=== PATIENT | male | born 1960 | race Caucasian/White ===

== ENCOUNTER 2022-10-15 09:10 | Outpatient (CLI) | payer OTHER | END 2022-10-15 09:11 | disposition home or self-care (01) | LOC: BICRAD 09:10 | PROVIDERS: ATTEND Chiropractor | DX: M50.90 Cervical disc disorder, unspecified, unspecified cervical region (principal) | CPT/HCPCS: 72040 ==

== ENCOUNTER 2022-11-26 12:03 | Outpatient (CLI) | payer OTHER | END 2022-11-26 12:04 | disposition home or self-care (01) | LOC: ULT 12:03 | PROVIDERS: ATTEND Chiropractor | DX: I25.10 Atherosclerotic heart disease of native coronary artery without angina pectoris (principal); I07.1 Rheumatic tricuspid insufficiency; I37.1 Nonrheumatic pulmonary valve insufficiency | CPT/HCPCS: 93306 ==